=== PATIENT | male | born 1975 | race Caucasian/White ===

== ENCOUNTER 2020-10-21 21:06 | Inpatient (IN) | payer OTHER ==
[~2020-10-21] VITALS: Ht 177.8 cm; Wt 161.0 kg
--- NOTE | ~2020-10-21 | TEE ---
[facility] [address] [place] [address] TRANSESOPHAGEAL ECHOCARDIOGRAM Name: JULIENNE SUAREZ Room #: 249-P ADM IN M.R.#: [id number] Admission: 10/21/20 Attend Phys: Soy Alvarez Discharge: Date of : 77 Report #: [id number] THIS REPORT FOR: cc: Steve Harper,Alfonso Cardenas MD [facility] ~ APPROVED REPORT Study performed: 10/23/2020 08:54:15 EXAM: Comprehensive 2D, Doppler, and color-flow Echocardiogram Patient Location: ICU Room #: 237 BSA: 2.68 HR: 115 bpm BP: 98/65 mmHg Rhythm: Atrial Fibrillation Other Information Study Quality: Fair/not all measurements taken Technically limited study due to morbid obesity/flat on back/on BiPAP. Indications Afib. (Heart rate ranged from 110-135 bpm during exam) Echo Enhancing Agent Indication: Endocardial border delineation Agent(s) / Amount(s) Used: Optison 5 cc 2D Dimensions RVDd: 36.62 mm IVSd: 12.47 (7-11mm) LVOT Diam: 21.16 (18-24mm) LVDd: 50.45 mm PWd: 12.28 (7-11mm) Ascending Ao: 35.00 (22-36mm) LVDs: 44.07 (25-40mm) Aortic Root: 35.26 mm Volumes Left Atrial Volume (Systole) Single Plane 4CH: 30.47 mL [facility] [address] [place] [address] TRANSESOPHAGEAL ECHOCARDIOGRAM Name: JULIENNE SUAREZ Room #: 249-P ADM IN M.R.#: [id number] Admission: 10/21/20 Attend Phys: Soy Mckinley Discharge: Date of : 77 Report #: [id number] Aortic Valve AoV Peak Jae.: 1.80 m/s AO Peak Gr.: 13.08 mmHg LVOT Max P.84 mmHg AO Mean Gr.: 7.56 mmHg AO V2 Mean: 1.31 m/s LVOT Max V: 0.84 m/s AO V2 VTI: 28.38 cm ANIKET Vmax: 1.65 cm2 Mitral Valve MV Decel. Time: 87.21 ms MV E Max Jae.: 0.89 m/s Pulmonary Valve PV Peak Jae.: 1.06 m/s PV Peak Gr.: 4.47 mmHg Tricuspid Valve RAP Estimate: 10.00 mmHg Left Ventricle The left ventricle is normal size. Mild concentric left ventricular hypertrophy. 40% This study is not technically sufficient to allow evaluation of the LV diastolic function due to atrial fibrillation. Right Ventricle Right ventricle is poorly visualized. Atria The left atrium size is normal. The right atrium size is normal. Aortic Valve Aortic valve is grossly normal. Trace aortic regurgitation. Mitral Valve The mitral valve is normal in structure. Trace mitral regurgitation. Tricuspid Valve The tricuspid valve is normal in structure. Unable to assess PA pressure. There is no tricuspid valve regurgitation noted. Great Vessels The aortic root is normal in size. The ascending aorta is normal in size. IVC is dilated and collapses >50% with inspiration. [facility] [address] [place] [address] TRANSESOPHAGEAL ECHOCARDIOGRAM Name: JULIENNE SUAREZ Room #: 249-P [facility] IN .R.#: [id number] Admission: 10/21/20 Attend Phys: Soy Mckinley Discharge: Date of : 77 Report #: [id number] Pericardium There is no pericardial effusion. Right pleural effusion. <Conclusion> Normal left ventricle size with mild concentric hypertrophy Ejection fraction 40% with global hypokinesis Right ventricle not well seen Normal atrial size Color-flow Doppler study was performed of the aortic/mitral/tricuspid/pulmonary valve Normal aortic/mitral valve structure and function No tricuspid valve insufficiency detected No pericardial effusion By: 0951 Alfonso Boothe MD, FACC /INF
[2020-10-21 21:07] VITALS: BP 107/70
[2020-10-21 21:39] LABS: BASOPHILS 0.3 % (0.0-2.0); HEMOGLOBIN 6.8 gm/dL (14.0-18.0)
[2020-10-21 21:41] LABS: ABSOLUTE NEUTROPHILS 12.7 thou/uL (1.4-8.2); EOSINOPHILS 0.2 % (0.0-3.0); HEMATOCRIT 20.3 % (42.0-52.0); LYMPHOCYTES 7.2 % (24.0-44.0); MCH 29.8 pg (26.0-34.0); MCHC 33.5 g/dL (28.0-37.0); MCV 89.1 fL (80.0-100.0); MONOCYTES 7.3 % (1.0-8.0); PLATELET COUNT 193 thou/uL (150-400); RBC 2.28 mil/uL (4.50-6.00); RDW 18.1 % (10.5-14.5); WBC 14.9 thou/uL (4.0-11.0)
[2020-10-21 21:45] LABS: CREATININE 6.9 mg/dL (0.7-1.3); POTASSIUM 5.2 mmol/L (3.5-5.1)
[2020-10-21 21:51] LABS: ALBUMIN 1.6 g/dL (3.4-5.0); DIRECT BILIRUBIN 0.2 mg/dL (<0.1-0.2); TOTAL BILIRUBIN 0.6 mg/dL (0.2-1.0); TOTAL PROTEIN 7.1 g/dL (6.4-8.2)
[2020-10-21 21:53] LABS: BE(vivo) -0.5 mmol/L (-2 to +3); PCO2 38.8 mmHg (35.0-45.0); PO2 68.9 mmHg (80.0-100.0)
[2020-10-21 22:41] LABS: URINE BILIRUBIN NEGATIVE (Negative); URINE BLOOD 2+ (Negative); URINE CLARITY SL CLOUDY; URINE COLOR YELLOW; URINE GLUCOSE-RANDOM* NEGATIVE (Negative); URINE KETONES NEGATIVE (Negative); URINE LEUKOCYTES-REFLEX TRACE (Negative); URINE NITRITE-REFLEX NEGATIVE (Negative); URINE PROTEIN (DIPSTICK) NEGATIVE (Negative); URINE UROBILINOGEN 0.2 E.U./dl (0.2-1.0)
[2020-10-21] MEDS ORDERED: PROAIR HFA8.5 GM INH (22:49)
[2020-10-21] MEDS ORDERED: LIPITOR40 MG PO (22:49)
[2020-10-21] MEDS ORDERED: ASA81BEC PO (22:49)
[2020-10-21] MEDS ORDERED: CALCIUM500 MG PO (22:49)
[2020-10-21] MEDS ORDERED: FLEXERIL PO (22:50)
[2020-10-21] MEDS ORDERED: CARVEDILOL12.5 MG PO (22:50)
[2020-10-21] MEDS ORDERED: DEPAKOTE 250MG250 MG PO (22:51)
[2020-10-21] MEDS ORDERED: ESCITALOPRA5 MG/5 ML PO (22:51)
[2020-10-21] MEDS ORDERED: FENOFIBRATE160 MG PO (22:51)
[2020-10-21] MEDS ORDERED: UNICOMPLEX M TA1 TA1 PO (22:53)
[2020-10-21] MEDS ORDERED: MEDROL DOSPAK21 TA1 PO (22:53)
[2020-10-21] MEDS ORDERED: XARELTO20 MG PO (22:54)
[2020-10-21] MEDS ORDERED: PROTONIX40 M2 PO (22:54)
[2020-10-21] MEDS ORDERED: TORSEMIDE20 MG PO (22:55)
[2020-10-21] MEDS ORDERED: VITAMIN B-121000 MC2 PO (22:55)
[2020-10-21] MEDS ORDERED: VITAMIN D3125 MCG/1 PO (22:56)
[2020-10-21 22:57] VITALS: BP 98/54
[2020-10-21] MEDS ORDERED: AZITHROMYCIN500 MG PO (22:57)
[2020-10-21 23:00] LABS: SQUAMOUS 0-3 Few /LPF (0-3)
[2020-10-21 23:01] LABS: AMORPHOUS URATES Moderate /LPF (None Seen); BACTERIA-REFLEX 1-9 Few /HPF (None Seen); CASTS None Seen /LPF (None Seen); MUCUS 4-6 Moderate strn/LPF (None Seen); URINE WBC-REFLEX 0-5 Rare /HPF (0-5)
[2020-10-21 23:44] VITALS: BP 124/40
[2020-10-22] VITALS (61 sets, daily range): BP systolic 101–151; BP diastolic 31–74
[2020-10-22 00:38] LABS: CHOLESTEROL < 50 mg/dL (<200); HDL CHOLESTEROL 10 mg/dL (>40); LDL CHOLESTEROL 19.99999 mg/dL (<100); TRIGLYCERIDE 101 mg/dL (<150); VLDL 20 mg/dL (<40)
[2020-10-22 00:45] LABS: SERUM ASSESSMENT Clear
--- NOTE | 2020-10-22 04:00 | NUR ---
PT ARRIVED TO UNIT APPROX 2340, PLACED ON MONITOR, VS AND FSBG COMPLETED, AND ADMISSION DONE. PT LETHARGIC, ABLE TO WHISPER HIS NAME AND , SLUGGISH W/ANSWERING QUESTIONS IF ANSWERING AT ALL. STARTED ON IV ABX AND FLUIDS. 96% ON 4L O2. MRSA SWAB SENT. WOUND PHOTOS OF BILATERAL HEELS AND BUTTOCKS. 0030-ROUTINE CONSULT TO DR. MATAMOROS CALLED TO ANSWERING SERVICE. 0300-SPOKE W/DEVONTE IGNACIO ABOUT ORDERS TO TRANSFUSE, PT WAS STILL TOO ALTERED TO CONSENT FOR BLOOD TRANSFUSION HIMSELF AND ONLY A FRIEND LISTED A CONTACT; WILL WAIT FOR MORNING LABS TO SEE IF THERE IS A SIGNIFICANT DECREASE REQUIRING EMERGENT TRANSFUSION. ALSO DISCUSSED PT'S INCREASED O2 NEEDS, INCLUDING PLACING ON VENTI MASK AND WET LUNG SOUNDS. DECREASED FLUIDS FROM 125 TO 75 ML/HR. SATS CONTINUED TO DROP, DEVONTE IGNACIO ASSESSED PT AGAIN, DROPPED FLUIDS TO 50 ML/HR AND ORDERED x1 DOSE IVP LASIX. PT ALSO PLACED ON BIPAP AT 60% FIO2 AT 0350.
--- NOTE | 2020-10-22 07:15 | EKG ---
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1975 Requested By: Taisha Young Order Number: [id number] MD: Alfonso Boothe Measurements Intervals [place] Rate: 75 P: 42 MS: 145 QRS: -8 QRSD: 118 T: 144 QT: 399 QTc: 446 Interpretive Statements Sinus rhythm LVH with IVCD and secondary repol abnrm No previous ECG available for comparison Electronically Signed On 10-22-2020 7:14:53 BOBBIN DUMPER by Alfonso Boothe [email or web address] <ELECTRONICALLY SIGNED> By: Alfonso Boothe MD, [facility] 10/22/20 0714 2138 2138 Alfonso Boothe MD, FACC /EPI
[2020-10-22 07:27] LABS: ABSOLUTE RETIC COUNT 0.0309 10^6/uL; MCH 29.2 pg (26.0-34.0); MCHC 32.6 g/dL (28.0-37.0); MCV 89.7 fL (80.0-100.0); OBSERVED RETIC COUNT 1.47 % (0.6-2.6); RBC 2.1 mil/uL (4.50-6.00); WBC 13.3 thou/uL (4.0-11.0)
[2020-10-22 07:33] LABS: HEMATOCRIT 18.9 % (42.0-52.0); HEMOGLOBIN 6.1 gm/dL (14.0-18.0)
[2020-10-22 07:38] LABS: ALBUMIN 1.4 g/dL (3.4-5.0); CALCIUM 7.7 mg/dL (8.5-10.1); CREATININE 6.5 mg/dL (0.7-1.3); POTASSIUM 4.6 mmol/L (3.5-5.1); TOTAL BILIRUBIN 0.5 mg/dL (0.2-1.0); TOTAL PROTEIN 6.4 g/dL (6.4-8.2)
--- NOTE | 2020-10-22 07:40 | NUR ---
ASSUMMED CARE OF THIS PATIENT FROM THE NIGHT NURSE, KENNETH STEVENSON. ROMAN PORTILLO RN NOTIFIED OF NEG COVID TEST. REMOVAL FROM ISOLATION PENDING.
[2020-10-22 08:10] LABS: % SATURATION 20 % (20-39); IRON 23 ug/dL (65-175); TIBC 117 ug/dL (250-450)
--- NOTE | 2020-10-22 08:15 | NUR ---
chart review. unable to visit with pt rt on bipap. noted he from LTC at [facility] home. per caroline, he lived there since oct 05. " he was [facility] and still required assist with wound care, prior to he was trying to manage at home but was needing assistance and was to weak home alone"/[place] liaison. discussed during am rounds. will cont following as needed for dc needs.
[2020-10-22 08:44] LABS: FOLIC ACID 3.6 ng/mL (8.6-58.9)
--- NOTE | 2020-10-22 11:13 | NUR ---
WOUND CONSULT; THE PATIENT IS IN COVID RESTRICTIONS. I COMPLETED AN ASSESSMENT FINDINGS ARE BILATERAL HEEL PRESSURE INJURIES STAGE 2, SCANT DRAINAGE MOST OF THE WOUND HAS PARTIAL THICKNESS LOSS. THE DRAINAGE IS SEROSANGINOUS AND NON ODOROUS BILATERALLY. THE BUTTOCKS IS ESCORIATED WITH SOME PATIAL THICKNESS LOSS. SEROSANGINOUS NON ODOROUS WELL. THE PPATIENT IS ON BIPAP BUT CAN COMMUNICATE. RECOMMENDATIONS; 1-ZGUARD TO BUTTOCKS/SARUM BID/PRN. 2-AG FOAM TO HEELS BILATERALLY M/W/F PRN 3-TURN Q2H .
--- NOTE | 2020-10-22 11:25 | NUR ---
CALLED PATIENT'S SISTER, SNOW GALARZA, UPDATED HER ON THE PATIENT'S STATUS AND OBTAINED CONSENT FOR BLOOD TRANSFUSION. PATIENT ALSO MORE RESPONSIVE AND NODDED HIS HEAD IN APPROVAL FOR THE BLOOD TRANSFUSION. WILL CONTINUE TO MONITOR.
--- NOTE | 2020-10-22 11:31 | NUR ---
VAT CONSULTED FOR CVAD. PT'S LABS,MEDS,HX,ORDER AND CONSENT VERIFIED. LIJ WAS WIDELY PATENT WITH USG. 6FR TL POWER JACC 25CM INSERTED TO 3 EXTERNAL WITH BRISK BR. STAT CXR SHOWS LINE LOOPED ON ITSELF. REPOSITIONED AND POWER FLUSHED. 2ND CXR ORDERED
--- NOTE | 2020-10-22 12:14 | NUR ---
REPOITIONED CVAD BY POWER FLUSHING. CXR SHOWS POSSIBLE PERSISTENT LEFT SVC READ BY DR DOS SANTOS, SPOKE TO DR SOUZA IN RADIOLOGY WHO ALSO VEIWED FILM AND STATED IT IS GOOD TO USE. CVAD RELEASED FOR IMMEDIATE USE PER PROTOCOL TO REBECA STEVENSON
--- NOTE | 2020-10-22 14:00 | NUR ---
DR TODD ROUNDED ON PATIENT AND UPDATED THE SISTER. ORDERS NOTED.
--- NOTE | 2020-10-22 15:00 | NUR ---
DR DOUGLAS ROUNDED ON PATIENT. MICRO CALLED ABOUT POSITIVE BLOOD CULTURE AND DR DOUGLAS UPDATED.
--- NOTE | 2020-10-22 15:35 | NUR ---
FAXED CLINICAL UPDATE TO [facility] SPOKE WITH GLENN IN ADM SHE RECEIVED UPDATE. DP TO FOLLOW.
[2020-10-22 17:14] LABS: HEMATOCRIT 22.5 % (42.0-52.0); HEMOGLOBIN 7.4 gm/dL (14.0-18.0)
[2020-10-22 17:22] LABS: APTT 36.3 Seconds (24.5-32.8); INR 1.6; PROTIME 16.9 Seconds (9.3-11.4)
--- NOTE | 2020-10-22 19:00 | NUR ---
PATIENT PROGRESSING TOWARDS OUTCOME GOALS URINE OUTPUT HAS BEEN GREATER THAN 75ML/HR VIA CHAWLA. MORE RESPONSIVE AND BREATHE SOUNDS HAVE IMPROVED. WILL CONTINUE TO MONITOR.
[2020-10-23] VITALS (77 sets, daily range): BP systolic 85–148; BP diastolic 39–93
[2020-10-23 04:06] LABS: GLYCOHEMOGLOBIN (HGB A1C) 5.8 % (4.8-5.6)
--- NOTE | 2020-10-23 04:41 | NUR ---
0338 - PT CONVERTED TO AFIB WITH A RATE BETWEEN 100-130, PT ASYMPTOMATIC OTHERWISE. DEVONTE IGNACIO NOTIFIED. EKG OBTAINED CONFIRMING AFIB. NO ORDERS GIVEN AT THIS TIME BUT WILL FOLLOW BACK UP WITH DEVONTE IGNACIO IN AN HOUR.
[2020-10-23 05:35] LABS: HEMATOCRIT 23.2 % (42.0-52.0); HEMOGLOBIN 7.6 gm/dL (14.0-18.0); MCH 29.6 pg (26.0-34.0); MCHC 32.8 g/dL (28.0-37.0); MCV 90.4 fL (80.0-100.0); PLATELET COUNT 154 thou/uL (150-400); RBC 2.56 mil/uL (4.50-6.00); RDW 17.9 % (10.5-14.5); WBC 12.1 thou/uL (4.0-11.0)
[2020-10-23 05:39] LABS: ALBUMIN 1.2 g/dL (3.4-5.0); CREATININE 5.9 mg/dL (0.7-1.3); POTASSIUM 4.4 mmol/L (3.5-5.1)
[2020-10-23 06:55] LABS: ABSOLUTE NEUTROPHILS 10.9 thou/uL (1.4-8.2); ANISOCYTOSIS 1+; PLATELET ESTIMATE NORMAL; POIKILOCYTOSIS 1+
[2020-10-23 08:06] LABS: BE(vivo) -0.4 mmol/L (-2 to +3); HCO3 25.6 mmol/L (22.0-26.0); PCO2 48.8 mmHg (35.0-45.0); PO2 66.4 mmHg (80.0-100.0); pH 7.337 (7.360-7.450); sO2 91.8 % (92.0-98.0)
--- NOTE | 2020-10-23 09:13 | NUR ---
ASSUMED CARE OF PT AT 0700 PT ANSWERED BASIC QUESTIONS AND FOLLOWED COMMANDS.
--- NOTE | 2020-10-23 11:00 | HC ---
[facility] [place] [address] CONSULTATION Name: JULIENNE SUAREZ Room #: 237-P ADM IN M.R.#: [id number] Admission: 10/21/20 Attend Phys: Soy Alvarez Discharge: Date of : 77 Report #: [id number] THIS REPORT FOR: cc: Steve Harper,Contreras Bueno MD ~ DATE OF SERVICE: 10/22/2020 INFECTIOUS DISEASE CONSULTATION ATTENDING PHYSICIAN: Soy Alvarez MD REASON FOR EVALUATION: Sepsis/pneumonitis. HISTORY OF PRESENT ILLNESS: Chart reviewed, patient examined. This is a 45-year-old extensive medical history given his age, most of it arises from morbid obesity. He additionally has seizure disorder, who lives in a facility, who was noted to be acting different than his usual, only had not been there long. Lab was performed, which showed renal failure with a creatinine of 6.2 and profound anemia, hemoglobin 7.2. Due to concern about possible complications including infection, he was transferred. He notably had a negative COVID test earlier in the week as well. On arrival, he is clearly encephalopathic. At this point, he is minimally responsive. He is maintained on BiPAP for ventilatory support. Repeat labs confirmed critical nature of his situation he was transfused packed red cells. Initial ABG: pO2 of 68.9 on 3 liters. Chest x-ray, question of right basilar pneumonitis. Lactic acid was normal at 0.6, although procalcitonin elevated at 12.37. Blood cultures have been collected and are sterile thus far. Repeat coronavirus PCR was negative as well. Urinalysis is unremarkable. He is empirically started on antimicrobial therapy with levofloxacin, Zosyn and vancomycin. The former 2 have been continued, additionally, has been on corticosteroids. ALLERGIES: None known. MEDICATIONS: In addition to the antibiotics include sliding scale insulin, subcutaneous heparin, ipratropium and albuterol inhaler, pantoprazole, p.r.n. analgesics and antiemetics. PAST MEDICAL HISTORY: As described above, morbid obesity complications. He has previous gastric bypass surgery in 07/2020, obstructive sleep apnea requiring CPAP, seizure disorder, hyperlipidemia, hypertension, major depression, history of DVTs, bilateral heel decubitus ulcers. SOCIAL HISTORY: Disabled, otherwise unknown. [address] [address] CONSULTATION Name: JULIENNE SUAREZ Room #: 237-P [facility] IN M.R.#: [id number] Admission: 10/21/20 Attend Phys: Soy Alvarez Discharge: Date of : 77 Report #: [id number] FAMILY HISTORY: Noncontributory. REVIEW OF SYSTEMS: Unobtainable. PHYSICAL EXAMINATION: GENERAL: In uehc-vk-wxrbxrlt distress. He is unable to arouse more than just a brief movement of his head. He does not open his eyes. He is morbidly obese. VITAL SIGNS: Temperature 98.4, pulse 71, respirations 16, and blood pressure 110/45. SKIN: Warm, dry, no rashes. HEENT: BiPAP in place. NECK: Appears to be supple. LUNGS: Diminished due to a size, few scattered coarse breath sounds. HEART: Distant, appears to be regular. I do not appreciate a murmur. ABDOMEN: Obese. Pannus is really soft. There are no apparent peritoneal signs. GENITOURINARY AND RECTAL: Deferred. EXTREMITIES: He has been offloading __ distal lower extremities. LABORATORY AND X-RAY DATA: Most recent chest x-ray again shows right pleural effusion with right lower lung infiltrate. MRSA PCR was positive. Renal ultrasound showed no evidence of obstructive uropathy, left renal cyst. LDH is 247. CPK is 1055. Ferritin elevated at 1414. Procalcitonin 12.37, free T3 was 1.00, free T4 1.2. Iron level was low at 23. Electrolytes: Sodium is 134, potassium 4.6, chloride 97, bicarbonate 26, anion gap of 11, BUN and creatinine is 137 and 6.5, and glucose of 147. AST is 73 and ALT of 12. Albumin is 1.4 and total protein 6.4. CBC: White count 13.3, H and H 6.1 and 18.9 at pre-transfusion and platelet count of 161. Blood cultures are sterile thus far. Urinalysis: 2+ blood, 0-5 white cells. ASSESSMENT AND PLAN: 1. Possible pneumonitis, complicated by sepsis. 2. Morbid obesity. 3. Respiratory failure. 4. Severe anemia. 5. Encephalopathy. We will continue empiric therapy. At this point, it is not entirely clear as to the extent of all the various factors. Now, it is difficult to ascertain from physical examination the patient's size. He remains critically ill. Continue ICU level support, would not be surprising to me if he deteriorates prior to improving, certainly pursue further diagnostic leads and adjust therapy as dictated. <ELECTRONICALLY SIGNED> By: Contreras Lincoln MD 10/23/20 1100 1457 1751 Contreras Lincoln MD /nt
--- NOTE | 2020-10-23 15:43 | NUR ---
cm asked to locate place or hospital were he had gi sleeve. jazz spoke with liaison with [facility] to check if they have any records, and they don't. paradise reno from [facility] and in doc report that [facility] is his main hospital. say had GI sleeve in 2019 but doesnt say where the procedure was done at. cm passed on information to icu charge nurse. will cont following as needed.
--- NOTE | 2020-10-23 18:09 | NUR ---
CENTRAL LINE AGAIN KINKED AND NON FUCTIONING, UNABLE TO OVER THE WIRE. 2 PERIPHERAL IV LINES PLACED. IT TOOK THE VASCULAR ACCESS NURSE [address] LINE, VERY DIFFICULT PLACEMENT- UNABLE TO ROTATE THE PATIENTS HEAD TO ATTEMPT RIGHT IJ, ORDER PLACED FOR IR TO ATTEMPT
[2020-10-24] VITALS (27 sets, daily range): BP systolic 87–162; BP diastolic 17–102
--- NOTE | 2020-10-24 00:11 | NUR ---
ASSUMED PT CARE AT 1900. VSS. PT A&0 TO SELF AND SITUATION, resting well, no complaints. report given to Lindsey STEVENSON
[2020-10-24 04:56] LABS: ALBUMIN 2.1 g/dL (3.4-5.0); CALCIUM 8.2 mg/dL (8.5-10.1); CREATININE 5.2 mg/dL (0.7-1.3); PHOSPHORUS 5.6 mg/dL (2.5-4.9); POTASSIUM 4.1 mmol/L (3.5-5.1)
--- NOTE | 2020-10-24 06:13 | NUR ---
Assumed care of patient at midnight. Patient sleeping but wakes easily and appears to be more alert than perviously. Able to answer yes/no questions. Heart rate now in the 50's. Sinus carl. Amiodarone off at 0500. Blood pressures stable in the 120's. Afebrile. Adequate oxygenation on 40% bipap. Pt has been NPO. Accuchecks covered with insulin. No BM. U/o 700 from adams cath. Am labs drawn via PIV. Values noted. Did not speak to any family this shift. See documentation on interventions for assessment details. Pt is progressing towards goals.
--- NOTE | 2020-10-24 06:58 | EKG ---
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1975 Requested By: Soy Alvarez Order Number: [id number] MD: Alfonso Boothe Measurements Intervals [place] Rate: 108 P: NE: QRS: -13 QRSD: 117 T: 138 QT: 343 QTc: 460 Interpretive Statements Atrial fibrillation LVH with IVCD and secondary repol abnrm Baseline wander in lead(s) V1 Compared to ECG 10/21/2020 21:38:05 Sinus rhythm no longer present Electronically Signed On 10-24-2020 6:58:03 LIEUTENANT COLONEL by Alfonso Boothe [email or web address] <ELECTRONICALLY SIGNED> By: Alfonso Boothe MD, [facility] 10/24/20 0658 0405 Alfonso Boothe MD, FAC /EPI
--- NOTE | 2020-10-24 08:10 | NUR ---
bedside nurse called cm rt needing records about gi sleeve pt had in 2019, request records from [facility]. cm education on how to request records. possible going to have vats procedure today.
--- NOTE | 2020-10-24 09:00 | NUR ---
If pt remains intubated following VATS, consider dobhoff for feeding as pt has hx gastric sleeve. Renal does not want TPN. Would need vital HP to start at 25-30ml/hr
--- NOTE | 2020-10-24 09:37 | NUR ---
DPOA CONSULT- ICU MANAGER FIXED INCOME SAID SHE HAS COMMUNICATED WITH THE PATIENT'S . CM SAID THE PT. HAS A DPOA. SHE IS GOING TO COMMUNICATE WITH THE TO GET A COPY BEFORE THE PROCEDURE TODAY. I SUGGESTED THAT IF SHE CAN NOT GET A COPY OF THE DPOA PAPERWORK, TO PAGE THIS CHALAIN. I WILL BE GLAD TO COME SEE THE PATIENT BEFORE HIS PROJECTED PROCEDURE, HE IS CURRENTLY ON ROOM AIR.
[2020-10-24 10:56] LABS: HEMOGLOBIN 7.2 gm/dL (14.0-18.0); MCH 29.5 pg (26.0-34.0); MCHC 32.6 g/dL (28.0-37.0); MCV 90.6 fL (80.0-100.0); RBC 2.43 mil/uL (4.50-6.00); RDW 17.8 % (10.5-14.5); WBC 14.8 thou/uL (4.0-11.0)
--- NOTE | 2020-10-24 11:08 | NUR ---
OA PAPERWORK IS COMPLETED AND IN CHART NOTIFIED THAT NO CURRENT PAPERWORK IS AVAILABLE. TELEPHONE CALL TO HIS SISTER, SNOW. UPDATED HER ON [facility] PAPERWORK. SHE IS LISTED [facility] FOR HEALTHCARE. WE HAD A TIME OF PRAYER FOR HER BROTHER'S SURGERY.
[2020-10-24 15:39] LABS: BE(vivo) -6.5 mmol/L (-2 to +3); PCO2 52.8 mmHg (35.0-45.0); PO2 88.9 mmHg (80.0-100.0); sO2 94.9 % (92.0-98.0)
[2020-10-24 15:40] LABS: pH 7.217 (7.360-7.450)
[2020-10-24 16:26] LABS: BE(vivo) -5.3 mmol/L (-2 to +3); HCO3 20.2 mmol/L (22.0-26.0); PCO2 39.3 mmHg (35.0-45.0); PO2 245.2 mmHg (80.0-100.0); sO2 99.5 % (92.0-98.0)
[2020-10-24 16:27] LABS: pH 7.328 (7.360-7.450)
--- NOTE | 2020-10-24 16:50 | NUR ---
PAN BOWEN CALLED, GENERAL UPDATE, ? FLUID ORDERS. CHEST TUBE OUTPUT REPORTED. STATES TO UPDATE DR. GIRALDO
--- NOTE | 2020-10-24 17:00 | NUR ---
DR. GIRALDO CALLED ABG RESULTS, GENERAL UPDATE GIVEN. REPORT ONLY 15CC URINE OUT LAST HOUR. ORDERS GIVEN. LAB DRAWN. CVP SET UP.
[2020-10-24 17:20] LABS: HEMATOCRIT 22.3 % (42.0-52.0); HEMOGLOBIN 7.3 gm/dL (14.0-18.0); MCHC 32.6 g/dL (28.0-37.0); PLATELET COUNT 140 thou/uL (150-400); RDW 17.7 % (10.5-14.5); WBC 16.1 thou/uL (4.0-11.0)
[2020-10-24 17:24] LABS: CREATININE 4.7 mg/dL (0.7-1.3); POTASSIUM 4.7 mmol/L (3.5-5.1)
[2020-10-24 17:42] LABS: APTT 33.4 Seconds (24.5-32.8); D-DIMER 6.68 ug/mLFEU (0.19-0.50); INR 1.5; PROTIME 15.6 Seconds (9.3-11.4)
[2020-10-24 17:45] LABS: ABSOLUTE NEUTROPHILS 14.3 thou/uL (1.4-8.2); ANISOCYTOSIS 2+; MYELOCYTES 3 %; NUCLEATED RBCS 1 /100WBC
[2020-10-24 17:47] LABS: OVALOCYTES 1+
[2020-10-24 17:48] LABS: SCHISTOCYTES OCCASIONAL; TARGET CELLS OCCASIONAL
[2020-10-24 17:49] LABS: TOXIC GRANULATION SLIGHT
--- NOTE | 2020-10-24 18:00 | NUR ---
DR. GIRALDO CALLED RESULTS OF LAB AND GENERAL UPDATE/ NEOSYNEPRINE MAXED OUT AT 200MCG. REPORTED 15CC URINE OUTPUT THIS LAST HOUR AND CHEST TUBE OUTPUT. ORDERS PER MD TO PLACE IN CHART. MD STATES NOT TO LIGHTEN PT UP THIS EVENING.
--- NOTE | 2020-10-24 19:10 | NUR ---
BRITTANIE FALK (RENAL MD) CALLED WITH URINE OUTPUT, LAB CVP AND GENERAL UPDATE. NO NEW ORDERS.
[2020-10-24 22:43] LABS: HEMATOCRIT 17.4 % (42.0-52.0); HEMOGLOBIN 5.8 gm/dL (14.0-18.0)
[2020-10-25] VITALS (25 sets, daily range): BP systolic 90–138; BP diastolic 29–69
[2020-10-25 05:13] LABS: HEMATOCRIT 22.6 % (42.0-52.0); HEMOGLOBIN 7.4 gm/dL (14.0-18.0); MCH 28.9 pg (26.0-34.0); MCHC 32.9 g/dL (28.0-37.0); MCV 87.9 fL (80.0-100.0); PLATELET COUNT 91 thou/uL (150-400); RBC 2.57 mil/uL (4.50-6.00); RDW 17.1 % (10.5-14.5); WBC 13.4 thou/uL (4.0-11.0)
[2020-10-25 05:21] LABS: BE(vivo) -4.9 mmol/L (-2 to +3); HCO3 20.6 mmol/L (22.0-26.0); PCO2 39.6 mmHg (35.0-45.0); PO2 85.1 mmHg (80.0-100.0); pH 7.334 (7.360-7.450); sO2 95.9 % (92.0-98.0)
[2020-10-25 05:31] LABS: ALBUMIN 2.3 g/dL (3.4-5.0); CALCIUM 7.6 mg/dL (8.5-10.1); CREATININE 4.6 mg/dL (0.7-1.3); PHOSPHORUS 5.3 mg/dL (2.6-4.7); POTASSIUM 4.3 mmol/L (3.5-5.1); TOTAL BILIRUBIN 0.8 mg/dL (0.2-1.0); TOTAL PROTEIN 5.5 g/dL (6.4-8.2)
[2020-10-25 06:09] LABS: ABSOLUTE NEUTROPHILS 11.7 thou/uL (1.4-8.2); ANISOCYTOSIS 1+; PLATELET ESTIMATE DECREASED
--- NOTE | 2020-10-25 06:22 | NUR ---
Patient fairly stable overnight. Heart rate and rhythm stable in the 60's. Blood pressures stable with Levophed and Vasopressin. No fevers. Adequate oxygenation on current vent settings. Tolerating vent with Propofol. Chest tube drainage slowed overnight. Hgb dropped, Gael called. Infused 2 units packed cells. Am labs noted. OGT placed and Nepro started at 20 mls/hr. No residual at this point. No family called this shift. See documentation on interventions for assessment details. Patient is progressing towards goals.
--- NOTE | 2020-10-25 11:09 | HC ---
[facility] [place] [address] CONSULTATION Name: JULIENNE SUAREZ Room #: 249-P ADM IN M.R.#: [id number] Admission: 10/21/20 Attend Phys: Soy Alvarez Discharge: Date of : 77 Report #: [id number] THIS REPORT FOR: cc: Steve Harper,Elliot Munroe MD ~ DATE OF SERVICE: 10/23/2020 We were asked to see the patient by Dr. Mayo. HISTORY: The patient is a 45-year-old [facility]. The patient presented to the ER via Emergency medical services with abnormal labs. The patient was found to have elevated BUN and creatinine and low hematocrit. The patient was said to have a reduced level of alertness than is typical. The patient was tested for COVID and this was negative on Tuesday. Since admission, the patient was seen by Infectious Disease for evaluation of sepsis and pneumonitis. Chest x-ray done on admission shows small right pleural effusion that layers along the right lateral chest. Right lower lung opacity is noted as well. Chest CT scan done today shows echogenic debris in the right pleural space with no free pleural fluid suggestive of intrathoracic hematoma. PAST HISTORY: Significant for gastric bypass surgery done in July at [facility]. It appears that the patient has been hospitalized intermittently since that time. The patient also has a history of seizure disorder, hypertension, hyperlipidemia, myopathy, morbid obesity, and major depressive disorder. The patient has been resident of [facility]. ALLERGIES: None known. I do not have a list of the medication previous to admission. MEDICATION: Currently includes sliding scale insulin, subcutaneous heparin, ipratropium and albuterol inhalers, pantoprazole, analgesics, antiemetics and antibiotics. FAMILY HISTORY, REVIEW OF SYSTEMS, AND SOCIAL HISTORY: Not obtainable, as the patient has BiPAP mask on and does not communicate with us currently. PHYSICAL EXAMINATION: GENERAL: The patient is lying in bed with BiPAP mask on. He will open his eyes and does look awake when his name is shouted, but he does not provide any answers to questions to me at this point. [facility] [address] [place] [address] CONSULTATION Name: JULIENNE SUAREZ Room #: 249-P ADM IN M.R.#: [id number] Admission: 10/21/20 Attend Phys: Soy Alvarez Discharge: Date of : 77 Report #: [id number] VITAL SIGNS: Temperature 36.1, heart rate 105, blood pressure 96/67, O2 sat 95% with 10-liter flow rate. HEENT: No scleral icterus. I see no arcus. NECK: No mass. No bruit. CHEST: Decreased breath sounds, right chest. HEART: Rhythm regular. ABDOMEN: Protuberant. SKIN: No specific rashes or infections noted. Edema in the lower extremities. NEUROLOGIC: The patient does not appear to have neurologic dysfunction, but does not respond enough to complete a full physical exam. ASSESSMENT AND PLAN: The patient appears to have a loculated pleural effusion. We will do more investigation to determine the underlying cause of this. However, Radiology has suggested that the debris is too thick for any sort of tube drainage. Intraoperative drainage with video-assisted thoracoscopy plus or minus thoracotomy with decortication may be appropriate. I will try to discuss risks in details with the family and obtain more information from the assisted about previous condition before going ahead with surgery; however, we may be able to proceed tomorrow afternoon. Thank you for the consult. <ELECTRONICALLY SIGNED> By: Elliot Oconnor MD 10/25/20 1109 1542 1627 Elliot Oconnor MD /nt
--- NOTE | 2020-10-25 11:09 | O ---
[facility] [place] [address] OPERATIVE REPORT Name: JULIENNE SUAREZ Room #: 249-P ADM IN M.R.#: [id number] Admission: 10/21/20 Attend Phys: Soy Turner Kim Discharge: Date of : 77 Report #: [id number] THIS REPORT FOR: cc: Steve Harper,Steve Candelaria,Elliot Coyle MD ~ DATE OF SERVICE: 10/24/2020 PREOPERATIVE DIAGNOSIS: Empyema, right chest. POSTOPERATIVE DIAGNOSIS: Empyema, right chest. OPERATION: Bronchoscopy, right video-assisted thoracoscopy, right thoracotomy with decortication. SURGEON: Elliot Oconnor MD ELECTRICAL TECHNICIAN INSTRUCTOR: BRUCE Mccartney. ANESTHESIA: General. INDICATIONS: The patient is a 45-year-old seen in consult for Dr. Mayo. The patient was transferred here from [facility]. The patient seems to have a long and unfortunate history that begins with a gastric bypass surgery in July. My understanding is that the patient has been institutionalized in one form or another since that time. The patient was transferred to this facility with clinical evidence of sepsis and a chest x-ray and CT scan showed a loculated right pleural effusion concerning for empyema. FINDINGS AND TECHNIQUE: After general anesthesia was established, flexible diagnostic bronchoscopy was performed. It was apparent at intubation that the pharynx was full of thick tenacious purulent sputum. A bronchial marcelo was placed. Bronchoscopy was performed, but no specific endobronchial lesions were noted. There were scattered thick secretions in the trachea and bronchi. After the bronchial marcelo was positioned in the right mainstem, the patient was placed with right side up. Exposure was obtained through typical video-assisted thoracoscopy ports. There was a mix of fluid and fibrin surrounding the right lung. I thought that in order to satisfactorily remove this pleural peel that we needed to expand our exposure to perform a thoracotomy. A posterolateral thoracotomy was made, chest was entered through the available interspace and the lung was decorticated. The area of involvement was principally lateral and inferior, but all 3 lobes were decorticated down to [facility] [address] [place] [address] OPERATIVE REPORT Name: JULIENNE SUAREZ Room #: 249-P ADM IN M.R.#: [id number] Admission: 10/21/20 Attend Phys: Soy Alvarez Discharge: Date of : 77 Report #: [id number] normal tissue. The lung itself was hemorrhagic and even after removing the thick fibrinous peel, the lung was bit hemorrhagic. We did encounter an area of perforating pustule in the lower lobe and cultures were taken. When all 3 lobes were decorticated, the chest was irrigated with copious amounts of warm saline, 4 chest tubes were placed to drain the anterior, lateral, posterior, and inferior pleural surfaces. Chest was then closed in layers in the usual fashion and the patient was taken to the recovery area in satisfactory condition. All counts reported as correct. <ELECTRONICALLY SIGNED> By: Elliot Oconnor MD 10/25/20 1109 [id number] Elliot Oconnor MD /nt
--- NOTE | 2020-10-25 18:24 | NUR ---
FIO2 DOWN TO 30%. LEVOPHED AT 1 MCG AND VASOPRESSIN AT O.O4 U/HR. INSULIN DRIP AT 6 UNITS/HR.. LIQUID BROWN STOOL TODAY X 1. THIS NURSE SPOKE WITH SISTER TODAY AND UPDATED HER ON PATIENT CONDITTION AND PLAN OF CARE.
[2020-10-26] VITALS (26 sets, daily range): BP systolic 109–166; BP diastolic 34–92
[2020-10-26 05:08] LABS: BE(vivo) -5.6 mmol/L (-2 to +3); HCO3 19.9 mmol/L (22.0-26.0); PCO2 39.5 mmHg (35.0-45.0); PO2 70.7 mmHg (80.0-100.0); pH 7.321 (7.360-7.450); sO2 93.1 % (92.0-98.0)
[2020-10-26 05:28] LABS: MCH 29.5 pg (26.0-34.0); RDW 17.1 % (10.5-14.5)
[2020-10-26 05:30] LABS: MCHC 33.6 g/dL (28.0-37.0); MCV 87.8 fL (80.0-100.0); PLATELET COUNT 88 thou/uL (150-400); RBC 2.13 mil/uL (4.50-6.00)
[2020-10-26 05:35] LABS: HEMATOCRIT 18.7 % (42.0-52.0); HEMOGLOBIN 6.3 gm/dL (14.0-18.0)
--- NOTE | 2020-10-26 06:00 | NUR ---
AM HGB 6.3 VANESSA PROCESS HELPER CALLED . LEFT ORDERS TO TX 1 UNIT PACKED CELLS.
--- NOTE | 2020-10-26 06:00 | NUR ---
REMAINS INTUBATED AND SEDATED WITH PROPOFOL AT 30 MCG. LEVOPHED and vaso gtts titrated off earlier.VSS SBP 118/70 TOTAL OF 100 CC CHEST TUBE DRAINAGE AND 1900 CC UO THIS SHIFT. PT BATHED. HAD A LARGE BROWN LIQUID STOOL PROGRESSING TOWARD GOALS. WILL CONT TO MONITOR.
[2020-10-26 06:07] LABS: ALBUMIN 2.4 g/dL (3.4-5.0); CALCIUM 7.8 mg/dL (8.5-10.1); CREATININE 3.8 mg/dL (0.7-1.3); PHOSPHORUS 5.3 mg/dL (2.5-4.9); TOTAL BILIRUBIN 0.4 mg/dL (0.2-1.0); TOTAL PROTEIN 5.7 g/dL (6.4-8.2)
[2020-10-26 06:22] LABS: ABSOLUTE NEUTROPHILS 11.8 thou/uL (1.4-8.2); ANISOCYTOSIS 1+; METAMYELOCYTES 1 %; MYELOCYTES 2 %; PLATELET ESTIMATE DECREASED
[2020-10-26 11:15] LABS: HEMOGLOBIN 6.4 gm/dL (14.0-18.0)
[2020-10-26 11:16] LABS: HEMATOCRIT 19.1 % (42.0-52.0)
[2020-10-26 16:11] LABS: HEMOGLOBIN 6.3 gm/dL (14.0-18.0)
--- NOTE | 2020-10-26 18:18 | NUR ---
PT PROGRESSING TOWARDS GOALS. FOLLOW ALL COMMANDS THIS AM. FECAL TUBE PLACED. INSULIN GTT.
[2020-10-26 22:27] LABS: HEMOGLOBIN 7.6 gm/dL (14.0-18.0)
[2020-10-27] VITALS (20 sets, daily range): BP systolic 112–168; BP diastolic 41–81
[2020-10-27 05:13] LABS: HCO3 20.4 mmol/L (22.0-26.0); PCO2 39.2 mmHg (35.0-45.0); PO2 86.5 mmHg (80.0-100.0); pH 7.335 (7.360-7.450)
[2020-10-27 05:17] LABS: HEMATOCRIT 23.4 % (42.0-52.0); HEMOGLOBIN 7.7 gm/dL (14.0-18.0); MCH 29.1 pg (26.0-34.0); MCHC 32.9 g/dL (28.0-37.0); MCV 88.5 fL (80.0-100.0); PLATELET COUNT 131 thou/uL (150-400); RBC 2.65 mil/uL (4.50-6.00); RDW 16.4 % (10.5-14.5); WBC 14.8 thou/uL (4.0-11.0)
[2020-10-27 05:45] LABS: ALBUMIN 2.2 g/dL (3.4-5.0); CALCIUM 7.7 mg/dL (8.5-10.1); CREATININE 3.2 mg/dL (0.7-1.3); POTASSIUM 3.7 mmol/L (3.5-5.1); TOTAL BILIRUBIN 0.5 mg/dL (0.2-1.0); TOTAL PROTEIN 5.6 g/dL (6.4-8.2)
--- NOTE | 2020-10-27 06:00 | NUR ---
REMAIN INTUBATED AND LIGHTLY SEDATED WITH PROPOFOL. ABLE TO DIE OUT WORKER WEAKLY TO COMMAND And nod approp, 1000 CC UO THIS SHIFT. АНДРЕЙ TUBE FEEDING AT 20 CC/HR PROGRESSING TOWARD GOALS.
[2020-10-27 08:30] LABS: ABSOLUTE NEUTROPHILS 11.8 thou/uL (1.4-8.2); ANISOCYTOSIS 1+; HYPOCHROMASIA 1+; PLATELET ESTIMATE NORMAL
--- NOTE | 2020-10-27 10:27 | NUR ---
ASSUMED CARE OF PT AT 0700 PT WILL WAKE UP AND FOLLOW COMMANDS AND WILL INDICATE THAT HE IS IN PAIN THROUGH SHAKING HIS HEAD, YES OR NO.
--- NOTE | 2020-10-27 12:29 | NUR ---
chart review. discussed during rounds. he remains on vent since had vats on tuesday10/24/20. possible start wean trial. cm provided verbal update for [facility]. will cont following as needed for dc needs.
--- NOTE | 2020-10-27 13:50 | NUR ---
WOUND CARE F/U; THE HEELS HAVE IMPROVED WITH LESS DRAINAGE TO THE RIGHT. THE LEFT HEEL IS VIRTUALLY HEALED. THE BITTOCKS AND KAM-AREAS HAVE IMPROVED GREATLY. A SMALL AREA TO THE COCCYX WAS VISUALIZED. THE PATIENT IS ON HEPARIN THERE IS CAPPILARY BLEEDING. THE PUNGAL AREAS TO ALL SKIN TEARS REMAIN A PROBLEM. RECOMMENDATIONS; -RN TO VISUALIZE THE COCCYX AND OTHER AREAS FOR BLEEDING. NO CHANGES AT THIS TIME.
--- NOTE | 2020-10-27 15:36 | NUR ---
FAXED CLINICAL UPDATE TO [facility] SPOKE WITH GLENN IN ADM SHE RECEIVED UPDATE AND WILL FOLLOW.
[2020-10-28] VITALS (24 sets, daily range): BP systolic 128–163; BP diastolic 39–111
[2020-10-28 05:05] LABS: HEMATOCRIT 24.1 % (42.0-52.0); HEMOGLOBIN 7.9 gm/dL (14.0-18.0); MCH 29.3 pg (26.0-34.0); MCHC 32.8 g/dL (28.0-37.0); MCV 89.3 fL (80.0-100.0); RBC 2.7 mil/uL (4.50-6.00); RDW 16.1 % (10.5-14.5); WBC 17.2 thou/uL (4.0-11.0)
[2020-10-28 05:24] LABS: CREATININE 2.8 mg/dL (0.7-1.3); POTASSIUM 3.4 mmol/L (3.5-5.1)
--- NOTE | 2020-10-28 06:38 | NUR ---
Pt remains on insulin gtt at a low dose. Propofol for vent management. CVP and art line in place. VSS. Patient follows commands on sedation vacation and nods head appropriately. Progressing towards goals.
--- NOTE | 2020-10-28 12:07 | PATH ---
[facility] [address] [place] [address] PATHOLOGY RPT PROCEDURE Name: JULIENNE SUAREZ Room #: 249-P ADM IN M.R.#: [id number] Admission: 10/21/20 Date of : 77 Discharge: Report #: [id number] Path Case #: [id number] [facility] Accession Number: [id number] . 01 Material submitted: . pleura - RIGHT PLEURAL TISSUE. Modifiers: right . 01 Clinical history: . REASON FOR VISIT - AMS, ACUTE RENAL FAILURE, ANEMIA THORACOSCOPY POSS THORACOTOMY BRONCHOSCOPY THORACOTOMY DECORTICATION OF LUNG PRE-OP DX - RESPIRATORY FAILURE . 02 Diagnosis: Pleura, tissue, decortication: - Marked acute inflammation, fibrinoid degeneration along with reactive changes. - Negative for malignancy. (IUV:pit 10/27/2020) QTP 10/27/2020 1647 Local . 02 Electronically signed: . Janie Dumont MD, Pathologist NPI- [id number] . 01 Gross description: . Received in formalin labeled "Julienne Suarez, right pleural tissue" is a 12.0 x 9.7 x 2.5 cm aggregate of hernandez-brown friable soft tissue fragments and red-brown clotted blood material. Oracle Database Architect tissue is submitted in cassette A1. ([facility]; 10/26/2020) [facility] 10/26/2020 0945 Local . 02 Pathologist provided ICD-10: R09.1 . 02 CPT . 287542 Specimen Comment: A courtesy copy of this report has been sent to [phone] Specimen Comment: Report sent to Performed at: [address] [id number] MD Juan J Avelar MD Phone: [phone] Performed at: 02 [facility] [address] [place] [address] PATHOLOGY RPT PROCEDURE Name: JULIENNE SUAREZ Room #: 249-P ADM IN .R.#: [id number] Admission: 10/21/20 Date of : 77 Discharge: Report #: [id number] Path Case #: [id number] [address] [place] [id number] MD Janie Dumont MD Phone: [phone]
--- NOTE | 2020-10-28 14:25 | 2DMMODE ---
[address] [address] [place] [address] 2 D/M-MODE ECHOCARDIOGRAM Name: JULIENNE SUAREZ Room #: 249-P ADM IN M.R.#: [id number] Admission: 10/21/20 Attend Phys: Soy Alvarez Discharge: Date of : 77 Report #: [id number] THIS REPORT FOR: cc: Steve Harper,Alfonso Cardenas MD [facility] Soy Alvarez MD ~ Sex/Age : M/45Y Height/Weight : 177.8cm/163.3kg Patient Name : JULIENNE SUAREZ Study Date : 2020-10-23 BSA : 2.68? Requesting Name : ECHO STANDARD W/O CONTRAST Date of : 1975 Request Doctor : SOY ALVAREZ Department : CARD --< Approved Report > Study performed: 10/23/2020 08:54:15 EXAM: Comprehensive 2D, Doppler, and color-flow Echocardiogram Patient Location: ICU Room #: 237 BSA: 2.68 HR: 115 bpm BP: 98/65 mmHg Rhythm: Atrial Fibrillation Other Information Study Quality: Fair/not all measurements taken Technically limited study due to morbid obesity/flat on back/on BiPAP. Indications Afib. (Heart rate ranged from 110-135 bpm during exam) Echo Enhancing Agent Indication: Endocardial border delineation Agent(s) / Amount(s) Used: Optison 5 cc 2D Dimensions RVDd: 36.62 mm IVSd: 12.47 (7~11mm) LVOT Diam: 21.16 (18~24mm) LVDd: 50.45 mm [facility] [address] [place] [address] 2 D/M-MODE ECHOCARDIOGRAM Name: JULIENNE SUAREZ Room #: 249-P [facility] IN ..#: [id number] Admission: 10/21/20 Attend Phys: Soy Tompkins Oct Discharge: Date of : 77 Report #: [id number] PWd: 12.28 (7~11mm) Ascending Ao: 35.00 (22~36mm) LVDs: 44.07 (25~40mm) Aortic Root: 35.26 mm Volumes Left Atrial Volume (Systole) Single Plane 4CH: 30.47 mL Aortic Valve AoV Peak Jae.: 1.80 m/s AO Peak Gr.: 13.08 mmHg LVOT Max P.84 mmHg AO Mean Gr.: 7.56 mmHg AO V2 Mean: 1.31 m/s LVOT Max V: 0.84 m/s AO V2 VTI: 28.38 cm ANIKET Vmax: 1.65 cm2 Mitral Valve MV Decel. Time: 87.21 ms MV E Max Jae.: 0.89 m/s Pulmonary Valve PV Peak Jae.: 1.06 m/s PV Peak Gr.: 4.47 mmHg Tricuspid Valve RAP Estimate: 10.00 mmHg Left Ventricle The left ventricle is normal size. Mild concentric left ventricular hypertrophy. 40% This study is not technically sufficient to allow evaluation of the LV diastolic function due to atrial fibrillation. Right Ventricle Right ventricle is poorly visualized. Atria The left atrium size is normal. The right atrium size is normal. Aortic Valve Aortic valve is grossly normal. Trace aortic regurgitation. Mitral Valve The mitral valve is normal in structure. Trace mitral regurgitation. Tricuspid Valve The tricuspid valve is normal in structure. Unable to assess PA pressure. There is no tricuspid valve regurgitation noted. [facility] [address] [place] [address] 2 D/M-MODE ECHOCARDIOGRAM Name: JULIENNE SUAREZ Room #: 249-P [facility] IN M.R.#: [id number] Admission: 10/21/20 Attend Phys: Soy Mckinley Discharge: Date of : 77 Report #: [id number] Great Vessels The aortic root is normal in size. The ascending aorta is normal in size. IVC is dilated and collapses >50% with inspiration. Pericardium There is no pericardial effusion. Right pleural effusion. <Conclusion> Normal left ventricle size with mild concentric hypertrophy Ejection fraction 40% with global hypokinesis Right ventricle not well seen Normal atrial size Color-flow Doppler study was performed of the aortic/mitral/tricuspid/pulmonary valve Normal aortic/mitral valve structure and function No tricuspid valve insufficiency detected No pericardial effusion Electronically Approved : 10/28/2020 14:23:23 By: [id number] Alfonso Boothe MD, FACC /
--- NOTE | 2020-10-28 14:31 | NUR ---
ASSUMED CARE AT 11OO. PT INTUBATED AND SEDATED. FSC DURING SEDATION VACATION. CPAP TRIAL TODAY FROM [id number]. PT'S NUMBERS LOOKED GOOD BUT PT HAD INCREASED WORK OF BREATHING WITH ACCESSORY MUSCLES. HEPARIN GTT INIATED PER [facility] PROTOCAL. POTASSIUM REPLACED PER [facility] PROTOCAL. ART LINE DC'D. PT AFEBRILE, ADEQUATE UOP, FMS IN PLACE WITH MODERATE OUTPUT, NGT IN PLACE WITH TF RUNNING AT GOAL, RESIDUALS WNL. [address] WITH SEROSANG DRAINAGE, TUBE PATENT, NO TIDALING/AIR LEAK NOTED. INSULIN GTT IN PLACE AND BEING TITRATED PER [facility] PROTOCAL. PT UPDATED AND EDUCATED ON PT CONDITION AND POC. PT SLOWLY PROGRESSING TOWARDS POC.
[2020-10-29] VITALS (22 sets, daily range): BP systolic 112–164; BP diastolic 41–89
--- NOTE | 2020-10-29 04:26 | NUR ---
ASSUMED PT CARE AT 1900. VSS SEDATION VACATION FOR 20 MINUTES, PT FOLLOWS COMMANDS, ATTEMPTS TO MOUTH WORDS TO COMMNUNICATE NEEDS. PT HAD AN UNEVENTFUL NOC. PT IS STABLE. REAMAINS ON INSULIN GTT, DOWN TO 4.5U/HR. BG IN 150S. CHEST TUBES INTACT; NO AIR LEAKS, OR CREPITUS ON SKIN. WILL CONTINUE TO CLOSELY MONITOR PT.
[2020-10-29 06:40] LABS: HEMATOCRIT 22.1 % (42.0-52.0); HEMOGLOBIN 7.2 gm/dL (14.0-18.0); MCH 29.3 pg (26.0-34.0); MCHC 32.6 g/dL (28.0-37.0); MCV 89.8 fL (80.0-100.0); RBC 2.46 mil/uL (4.50-6.00); RDW 16.8 % (10.5-14.5); WBC 21.4 thou/uL (4.0-11.0)
[2020-10-29 06:46] LABS: CALCIUM 7.4 mg/dL (8.5-10.1); CREATININE 2.4 mg/dL (0.7-1.3); POTASSIUM 3.6 mmol/L (3.5-5.1)
[2020-10-29 09:29] LABS: BE(vivo) -5.7 mmol/L (-2 to +3); HCO3 19.7 mmol/L (22.0-26.0); PCO2 38.2 mmHg (35.0-45.0); PO2 89.3 mmHg (80.0-100.0); pH 7.331 (7.360-7.450); sO2 96.3 % (92.0-98.0)
--- NOTE | 2020-10-29 10:59 | NUR ---
ASSUMED CARE OF PT AT [address] ZHENG WOULD LIKE TO EXTUBATE THE PATIENT SINCE HE PASSED HIS CPAP AND IS RESPONDING TO COMMANDS. EXTUBATION PLANNED IN ROUGHLY AN HOUR TO ALLOW STOMACH TO EMPTY.
--- NOTE | 2020-10-29 12:21 | NUR ---
Case discussed in ICU rounds. Pt had good blood gases and cpap trial this morning. Plans to extubate later today. Was trying to write on communication board and following commands. DC technical planner to fax updated to the [facility] liason.
--- NOTE | 2020-10-29 12:47 | NUR ---
WOUND CARE F/U; THE LEFT HEEL HAS SCANT AMOUNT OF SEROSANGINOUS DRAINAGE, NO DRANAGE TO THE RIGHT. BOTH HEELS ARE HEALING USING TOPICAL WOUND CARE AND PRAFO BOOTS BILATERALLY FOR PRESSURE REDUCTION. THE COCCYX WAS NOT VISUALIZED. PICTURES TAKEN THE THE BILATERAL HEELS. NO CHANGES NEEDED AT THIS TIME. DISCUSSED WITH [facility].
[2020-10-30] VITALS (16 sets, daily range): BP systolic 122–156; BP diastolic 44–104
--- NOTE | 2020-10-30 03:01 | NUR ---
ASSESSMENT: PT REMAIN ALERT AND ORIENT TIMES TWO. FORGETFUL AND CONFUSED AT TIMES ABOUT SITUATION AND PLACE. VSS, AFEBRILE. SR PER MONITOR. TOLERATING 2 L NC. HEPARIN TITRATED PER PROTOCOL. INSULIN RESUMED AT 2200, BS 150. PARTIAL BATH GIVEN. REPOSITIONED WITH PILLOW TILTS Q 2 HRS. CHAWLA AND FMS PATENT WITH GOOD RESULTS. CT PATENT AND INTACT. SR PER MONITOR. WOUND DRESSING INTACT. SLOW PROGRESS TOWARDS DC GOALS., WILL CONTINUE TO MONITOR.
[2020-10-30 05:14] LABS: HEMOGLOBIN 6.9 gm/dL (14.0-18.0); MCH 29.3 pg (26.0-34.0)
[2020-10-30 05:17] LABS: HEMATOCRIT 21.3 % (42.0-52.0); MCHC 32.4 g/dL (28.0-37.0); MCV 90.3 fL (80.0-100.0); RBC 2.36 mil/uL (4.50-6.00); RDW 16.4 % (10.5-14.5); WBC 19.5 thou/uL (4.0-11.0)
[2020-10-30 05:31] LABS: CALCIUM 7.9 mg/dL (8.5-10.1); POTASSIUM 3.6 mmol/L (3.5-5.1)
--- NOTE | 2020-10-30 06:39 | NUR ---
PT STATING THAT HIS RIGHT SIDE "HURT" AT THIS TIME. REFUSING PAIN MEDICATION. PT HAD JUST HAD AN XRAY AND SAYS THAT HIS SIDE WAS HURTING EARLIER, THAT "I JUST DEALT WITH IT". PT DENIED PAIN EACH TIME HE WAS ASKED. WILL CONTINUE TO MONITOR.
--- NOTE | 2020-10-30 09:24 | NUR ---
0924- Placed SCD's on patient after education provided about importance/VTE.
--- NOTE | 2020-10-30 11:59 | NUR ---
FAXED CLINICAL UPDATES AND NEGATIVE COVID RESULTS (10/21/20) TO [facility]. WILL CONFIRM WITH GLENN/LIAISON THAT THEY RECEIVED. [facility] P [phone]; [facility]S FAX [phone]
[2020-10-31 03:27] VITALS: BP 127/56
--- NOTE | 2020-10-31 03:51 | NUR ---
Assumed pt care care at 1900. Pt is alert and oriented no self. No sign of distress noted in pt. Pt is laying in bed. Requsted for some ice chips. rn told pt is is NPO. Vital signs stable. 1 unit of PRBC administered. Denies pain. Scheduled meds administered to pt. No acute events overnight. Continue to monitor pt. No further needs at this time.
[2020-10-31 07:27] VITALS: BP 148/72
[2020-10-31 08:03] LABS: HEMATOCRIT 21.4 % (42.0-52.0); HEMOGLOBIN 7.2 gm/dL (14.0-18.0); MCH 30.4 pg (26.0-34.0); MCHC 33.5 g/dL (28.0-37.0); MCV 90.6 fL (80.0-100.0); RBC 2.37 mil/uL (4.50-6.00); RDW 16.5 % (10.5-14.5); WBC 17.5 thou/uL (4.0-11.0)
[2020-10-31 08:08] LABS: CALCIUM 8.3 mg/dL (8.5-10.1); CREATININE 1.8 mg/dL (0.7-1.3); MAGNESIUM 1.6 mg/dL (1.8-2.4); POTASSIUM 3.5 mmol/L (3.5-5.1)
--- NOTE | 2020-10-31 09:55 | NUR ---
ASSUMED PT CARE AT 0700. PT RESTING. SPEECH SEEN PATIENT AND PT PASSED HIS SWALLOW EVAL AND WAS GIVEN THE DIET ORDERED. PT DENIES PAIN THIS MORNING. ASSESSMENT PERFORMED AND CHARTED. VSS. WILL CONTINUE TO MONITOR PT.
[2020-10-31 11:15] VITALS: BP 152/67
--- NOTE | 2020-10-31 13:34 | NUR ---
pt transferred to bariatric bed.pt tolerated move well. pt then sat up and ate a couple bites of lunch. pt tolerated lunch well. vss. will continue to monitor.
[2020-10-31 15:14] VITALS: BP 169/77
--- NOTE | 2020-10-31 16:11 | NUR ---
Pt now on CCU and being seen by therapy and rehab medicine. [facility]N is following along. Pt is from [facility] but has not snf benefits as he [place]. Will reassess early next week and see if acute rehab is an option.
[2020-10-31 19:27] VITALS: BP 186/94
[2020-10-31 19:33] VITALS: BP 167/68
[2020-11-01 03:58] VITALS: BP 143/58
--- NOTE | 2020-11-01 03:59 | NUR ---
Assumed pt care at 1900. Pt is alert and responsive. No sign of distress noted in pt. Denies any pain. Pt is laying in bed. Assessment completed and documented. Scheduled meds administered to pt. No acute events overnight. No further needs at this time continue to monitor.
[2020-11-01 05:44] LABS: RBC 2.2 mil/uL (4.50-6.00)
[2020-11-01 05:45] LABS: HEMOGLOBIN 6.6 gm/dL (14.0-18.0); MCH 30.1 pg (26.0-34.0); MCHC 33.4 g/dL (28.0-37.0); RDW 16.3 % (10.5-14.5); WBC 14.7 thou/uL (4.0-11.0)
[2020-11-01 05:48] LABS: HEMATOCRIT 19.8 % (42.0-52.0)
[2020-11-01 06:01] LABS: CALCIUM 8.5 mg/dL (8.5-10.1); CREATININE 1.6 mg/dL (0.7-1.3); MAGNESIUM 1.4 mg/dL (1.8-2.4)
[2020-11-01 06:03] LABS: POTASSIUM 2.9 mmol/L (3.5-5.1)
[2020-11-01 07:27] VITALS: BP 156/80
[2020-11-01 07:54] VITALS: BP 137/52; BP 142/92; BP 152/50
--- NOTE | 2020-11-01 08:18 | NUR ---
assumed pt care at 0700. pt resting at this time. 0800, assessment performed and charted. pts blood transfusion started. vss. will continue to monitor. pt denies pain at this time.
[2020-11-01 11:44] VITALS: BP 152/58
--- NOTE | 2020-11-01 12:03 | NUR ---
PTS BLOOD TRANSFUSION FINISHED. NOON ASSESSMENT COMPLETED, NO CHANGES. VSS. WILL CONTINUE TO MONITOR.
[2020-11-01 16:24] VITALS: BP 147/80
[2020-11-01 16:35] LABS: HEMATOCRIT 22.7 % (42.0-52.0); HEMOGLOBIN 7.8 gm/dL (14.0-18.0)
[2020-11-01 20:00] VITALS: BP 142/61; BP 153/61
--- NOTE | 2020-11-02 03:26 | NUR ---
PT IS ALERT AND ORIENTED X4. LUNGS ARE DIMINISHED. ABDOMEN IS ROUND. BOWEL SOUNDS ACTIVE. PT HAS A CHAWLA PRESENT AND FECAL MANAGEMENT SYSTEM IN PLACE AT THIS TIME.ON NECTAR THICKEN LIQUIDS WITH SPOON. REQUESTING DIFFERENT THINGS TO DRINK REFUSED TO GIVE HIM AND TOLD HIM WHAT HIS RESTRICTIONS WAS. 3 PLUS EDEMA NOTED BILATERAL IN LEGS. CALL LIGHT WITHIN REACH IF NEEDS ASSISTANCE FROM NURSING.
[2020-11-02 04:46] VITALS: BP 114/61
[2020-11-02 06:00] LABS: HEMATOCRIT 22.4 % (42.0-52.0); HEMOGLOBIN 7.4 gm/dL (14.0-18.0); MCH 29.8 pg (26.0-34.0); MCHC 33.2 g/dL (28.0-37.0); MCV 89.7 fL (80.0-100.0); RBC 2.49 mil/uL (4.50-6.00); WBC 15.3 thou/uL (4.0-11.0)
[2020-11-02 06:06] LABS: CALCIUM 8.6 mg/dL (8.5-10.1); CREATININE 1.5 mg/dL (0.7-1.3); MAGNESIUM 1.3 mg/dL (1.8-2.4)
[2020-11-02 07:06] VITALS: BP 143/55
--- NOTE | 2020-11-02 09:52 | NUR ---
ASSUMED PT CARE AT 0700. PT RESTING. ASSESSMENT PERFORMED, CHARTED. VSS. MEDICATION ADMINISTRATION. WILL CONTINUE TO MONITOR.
[2020-11-02 11:20] VITALS: BP 140/64
--- NOTE | 2020-11-02 14:07 | NUR ---
ATTEMPTED TO GIVE PATIENT PO PILLS, PT COULD NOT SWALLOW A WHOLE PILL IN YOGURT OR APPLESAUCE, WE THEN ATTEMPTED TO CRUSH THE PILLS. PT SPIT HIS PILLS OUT AND STATES HE IS NOT DOING THAT, IT TASTE NASTY. I EXPLAINED TO HIM THAT IT IS IMPORTANT TO ATTEMPT TO TAKE HIS PILLS BY MOUTH DUE MANAGER RESEARCH AND DEVELOPMENT IVS ARE NOT POSSIBLE FOR THE MEDS HE RECEIVES. PT STATES HE DOESNT CARE. WILL TRY TO TALK TO PATIENT ABOUT OTHER OPTIONS TO GIVE WITH MEDS WITH NEXT DOSING.
[2020-11-02 16:37] VITALS: BP 149/78
[2020-11-02 19:38] VITALS: BP 158/83
[2020-11-03 03:41] VITALS: BP 147/76
--- NOTE | 2020-11-03 07:01 | NUR ---
ASSUME CARE 1900. POT/VITALS STABLE. A/O X 4. DENIES ANY PAIN. VERY POOR TOLERANCE TO ACTIVITY. PT NEEDS A LOT OF ENCOURAGEMENT TO MOVE SELF IN BED. PT/OT ON BOARD. ASSESSMENT CHARTED. POOR PROGRESS WITH POC. SR ON MONITOR. FECAL MGT TUBE SYSTEM IN PLACE. COPIOUS AMOUNT OF URINE NOTED WITH CHAWLA IN PLACE. URINE IS CLOUDY WITH LOTS OF SEDIMENTS. DENIES TAKING HIS PILLS DESPITE EDUCATION ON THE IMPORTANCE OF COMPLIANCE. PLAN IS TO MONITOR AND MANAGE RESP FUNCTION/ IMPROVE ACTIVITY LEVELS/MONITOR FOR INFECTION/MONITOR LOC AND KIDNEY FUNCTION. WILL CONTINUE TO MONITOR AND FOLLOW WITH POC
[2020-11-03 07:02] LABS: HEMATOCRIT 21.4 % (42.0-52.0); HEMOGLOBIN 7.3 gm/dL (14.0-18.0); MCH 30.6 pg (26.0-34.0); MCHC 34.1 g/dL (28.0-37.0); MCV 89.8 fL (80.0-100.0); RBC 2.38 mil/uL (4.50-6.00); RDW 16.2 % (10.5-14.5); WBC 12.6 thou/uL (4.0-11.0)
[2020-11-03 07:08] LABS: CALCIUM 8.5 mg/dL (8.5-10.1); CREATININE 1.3 mg/dL (0.7-1.3); MAGNESIUM 1.5 mg/dL (1.8-2.4)
[2020-11-03 07:10] LABS: POTASSIUM 2.7 mmol/L (3.5-5.1)
[2020-11-03 08:50] VITALS: BP 164/78
[2020-11-03 12:13] VITALS: BP 189/111
[2020-11-03 15:28] VITALS: BP 215/102
--- NOTE | 2020-11-03 19:52 | NUR ---
TWITCHES. REFUSING PO MEDS. K+, Mg REPLACED ORDERED. US ABD THIS P.M. FECAL MANAGEMENT TUBE AND CHAWLA PATENT.
[2020-11-03 20:28] VITALS: BP 170/50
--- NOTE | 2020-11-03 20:39 | NUR ---
PATIENT WEIGHS 383.9 LBS, 174 KG.
[2020-11-04] VITALS: BP 154/58
[2020-11-04 02:22] LABS: HEMATOCRIT 23.3 % (42.0-52.0); HEMOGLOBIN 7.7 gm/dL (14.0-18.0); MCH 29.7 pg (26.0-34.0); MCHC 32.8 g/dL (28.0-37.0); MCV 90.4 fL (80.0-100.0); RBC 2.58 mil/uL (4.50-6.00); RDW 16.4 % (10.5-14.5)
[2020-11-04 02:31] LABS: CALCIUM 8.3 mg/dL (8.5-10.1); CREATININE 1.4 mg/dL (0.7-1.3); MAGNESIUM 1.5 mg/dL (1.8-2.4)
[2020-11-04 02:32] LABS: POTASSIUM 2.9 mmol/L (3.5-5.1)
[2020-11-04 04:40] VITALS: BP 161/105
--- NOTE | 2020-11-04 04:57 | NUR ---
ASSUME CARE 1900. PT STABLE. BP RUNS HIGH MOSTLY. METOPROLOL 5MG IVP FOR BP/HEART RATE. A/O TO PERSON AND PLACE BUT NOT QUITE SITUATION AND TIME. PT DOES NOT SEEM FULLY APPROPRIATE NEUROLOGICALLY. DOES NOT QUITE FOLLOW COMMANDS AND SOMETIMES DOES NOT ANSWER QUESTIONS APPROPRIATELY. JERKING NOTED FREQUENTLY. CONTINUES TO DENY PO MEDICATION FOR THE MOST PART. PT NEEDS A LOT OF EDUCATION OF HEALTH PROMOTION AND SELF CARE. DOES NOT SEEM TO HAVE THE DESIRE TO LEARN OR MAKE THE EFFORT TOWARDS HEALTH PROMOTION. COULD REALLY BENEFIT FROM PT/OT. PLAN IS TO CONTINUE TO MONITOR LOC WELL CONTINUE ABX THERAPY. MONITOR AND REPLACE ELECTROLYTES. COPIOUS AMOUNTS OF URINE OUTPUT NOTED. SR ON MONITOR. FECAL MANAGEMENT TUBE STILL IN PLACE WITH LIQUID STOOL. WILL CONTINUE TO MONITOR AND FOLLOW WITH POC NOTED
--- NOTE | 2020-11-04 09:10 | NUR ---
[facility] denied patient for acute rehab. Plan return to [facility] at discharge.
--- NOTE | 2020-11-04 11:08 | NUR ---
FAXED CLINICAL UPDATE TO [facility] RECEIVED CONFIRMATION AND LEFT MSG WITH SANGEETA IN ADM.
--- NOTE | 2020-11-04 15:26 | NUR ---
WOUND CARE F/U; THE BILATERAL HEEL WOUNDS ARE STABLE AT THIS TIME AND CONTINUES TO DRAIN A SMALL AMOUNT OF SEROSANGINOUS DRAINAGE. NO ODOR OR OTHER S/S OF INFECTION. THE COCCYX MEANSURES 5 X 5 X 0.1 A MODERATE AMOUT OF SEROSANGINOUS DRAINAGE. THE PATIENT IS OBESE AND REFUSES TO TURN AND IS ANGRY. IT TAKES 3+ STAFF TO TURN. RECOMMENDATIONS; CONTINUE CURRENT DRESSING ORDERS. RN PRESENT.
--- NOTE | 2020-11-04 17:10 | NUR ---
Patient more alert. Discussed planned return to [facility]. Patient reports he has an apt and will dc to his apt. Discussed limitations and cannot return to apt at this time. left message for sister Elsie. Update facility.
--- NOTE | 2020-11-04 18:13 | NUR ---
SR PER TELE. MOSTLY SOMNOLENT, EXCEPT WHEN WE TURNED HIM TO CLEAN AND REDRESS HIS BUTTOCK WOUNDS, YELLING AT US. ELECTROLYTES REPLACED ORDERED. UPDATED HIS SISTER/DPOA TELEPHONICALLY. FALL PRECAUTIONS IN PLACE.
--- NOTE | 2020-11-04 19:09 | EEG ---
[facility] [place] [address] ELECTROENCEPHALOGRAM Name: JULIENNE SUAREZ Room #: 203-P ADM IN M.R.#: [id number] Admission: 10/21/20 Attend Phys: Soy Frazier Discharge: Date of : 77 Report #: [id number] THIS REPORT FOR: //name// DATE OF SERVICE: 11/03/2020 This patient is being evaluated for the altered mental status. EEG was done by placing the electrode by standard 10-20 system of electrode placement. Both referential and sequential montages were used for recording. Background activity in this patient's EEG is difficult to determine, as the patient did not cooperate and there is a lot of artifact. It does appear to be about 11 Hz and 40 microvolt. Photic stimulation is unremarkable. Throughout the record, no active epileptiform activity was noticed. IMPRESSION: This patient's EEG is intermixed with a lot of artifact. That is a nonspecific abnormality, which can occur with encephalopathy, effect of psychotropic medication, dementia, etc. Clinical correlation is recommended. <ELECTRONICALLY SIGNED> By: Volodymyr Guerra MD 11/04/20 1909 [id number] Volodymyr Guerra MD /nt
[2020-11-04 20:05] VITALS: BP 197/94
[2020-11-04 23:38] VITALS: BP 173/78
[2020-11-05 03:37] VITALS: BP 200/99
[2020-11-05 06:08] VITALS: BP 132/101
[2020-11-05 06:08] LABS: ABSOLUTE NEUTROPHILS 10.7 thou/uL (1.4-8.2); BASOPHILS 0.6 % (0.0-2.0); EOSINOPHILS 1.5 % (0.0-3.0); HEMATOCRIT 21.9 % (42.0-52.0); HEMOGLOBIN 7.4 gm/dL (14.0-18.0); LYMPHOCYTES 8.7 % (24.0-44.0); MCH 30.3 pg (26.0-34.0); MCHC 33.5 g/dL (28.0-37.0); MCV 90.4 fL (80.0-100.0); MONOCYTES 2.4 % (1.0-8.0); PLATELET COUNT 273 thou/uL (150-400); POLYS 86.8 % (36.0-66.0); RBC 2.43 mil/uL (4.50-6.00); RDW 16.6 % (10.5-14.5); WBC 12.3 thou/uL (4.0-11.0)
[2020-11-05 06:45] LABS: ALBUMIN 1.8 g/dL (3.4-5.0); CALCIUM 7.9 mg/dL (8.5-10.1); CREATININE 1.2 mg/dL (0.7-1.3); POTASSIUM 3.4 mmol/L (3.5-5.1); TOTAL BILIRUBIN 0.9 mg/dL (0.2-1.0); TOTAL PROTEIN 6.2 g/dL (6.4-8.2)
--- NOTE | 2020-11-05 07:46 | NUR ---
PT ALERT, SLEPT MOST OF THE NIGHT, SR ON THE MONITOR, BP ELEVATED, IV LOPRESSOR GIVEN X2, BP BETTER THIS AM, MEDS GIVEN PER OCT, PASSED ON REPORT TO DAY NURSE
[2020-11-05 08:12] VITALS: BP 143/90
[2020-11-05 11:50] VITALS: BP 149/91
--- NOTE | 2020-11-05 13:00 | NUR ---
ASSUMMED CARE OF THIS PATIENT THIS AM. PATIENT IS REFUSING MEALS AND IS UNABLE TO PARTICIPATE IN HIS CARE. JERKING MOVEMENT OF LEFT SIDE NOTED AND UNABLE TO LIFT HIS ARM OR MOVE HIS LEG.
[2020-11-05 15:31] VITALS: BP 173/67
[2020-11-05 19:28] VITALS: BP 138/55
--- NOTE | 2020-11-05 19:48 | NUR ---
PATIENT IS NOT PROGRESSING TOWARDS OUTCOME GOALS HE IS REFUSING TO EAT AND FRAGMENTS OF PILLS NOTED IN MOUTH 30 M[address]. [address] CLIFTON AWARE AND UP TO SEE PATIENT. POTASSIUM AND MAG GIVEN FOR LOWER LEVELS REPORTED TO DR CLIFTON. MONITOR SHOWING ST WITH RATE IN THE 120'S, METOPOROL GIVEN, WITH DECREASE IN HEART RATE NOTED. WILL CONTINUE TO MONITOR
--- NOTE | 2020-11-06 00:50 | NUR ---
ATTEMPTED TO TAKE PHOTOS OF PT BL HEELS AND COCCYX. CAMERA MALFUNCTION. PT REFUSED TO ALLOW RN TO RETAKE PHOTOS.
[2020-11-06 03:41] VITALS: BP 137/58
--- NOTE | 2020-11-06 04:41 | NUR ---
PT IS IRRITABLE AND OCCASIONALLY EXPRESSES HIMSELF WITH VERBAL OUTBURSTS AND CURSING AT STAFF. DOES NOT WISH TO BE TURNED VERY MUCH, BECOMES VERY UPSET WITH CARES REGARDING WOUNDS.
[2020-11-06 07:51] VITALS: BP 122/57
--- NOTE | 2020-11-06 11:24 | NUR ---
VASCULAR ACCESS NURSE ROUNDING FOR WEEKLY DRESSING CHANGE. THE INSERTION SITE IS NOTED TO BE SLIGHTLY PINK AND TENDER WITH CHLORHEXIDINE SCRUB. WEEKLY DRESSING CHANGE COMPLETED AND LEFT PERIPHERAL IV WAS REMOVED.
[2020-11-06 11:41] VITALS: BP 115/66
--- NOTE | 2020-11-06 12:44 | NUR ---
WOUND CARE F/U; THIS IS AN OBESE MALE WHO CONSISTANTLY REFUSES CARE. WE COLLABERATED WITH HIM AND HE AGREED. THE SACRUM/COCCYX WAS ASSESSED. THE WOUND BED IS PINK. SEROSANGIOUS DRAINAGE. NO ACUTE S/S OF INFECTION. THE HEEL WOUNDS BILATERALLY ARE STABLE. THE HEELS ARE DRAINGING A SCANT AMOUT OF SEROSANGINOUS DRAINAGE. RECOMMEDNATIONS REMAIN UNCHANGED. RN WAS PRESENT.
[2020-11-06 15:31] VITALS: BP 139/96
--- NOTE | 2020-11-06 17:13 | NUR ---
Case discussed with the care team and update given to the [facility] liason. Poor po intake noted, on bipap at night, and getting numerous iv meds including iv atb. Will discuss LTAC criteria with the team to determine if referrals are indicating vs direct return back to long term care administrator care at [facility]. [facility] will need a copy of his DPOA document that was completed on 10-24-20 as well as an updated covid test. Will follow.
[2020-11-06 18:49] LABS: MCH 29.8 pg (26.0-34.0); MCV 90.4 fL (80.0-100.0); RBC 2.13 mil/uL (4.50-6.00); RDW 17.2 % (10.5-14.5); WBC 10.1 thou/uL (4.0-11.0)
[2020-11-06 18:58] LABS: CALCIUM 7.6 mg/dL (8.5-10.1); CREATININE 1.2 mg/dL (0.7-1.3); MAGNESIUM 1.2 mg/dL (1.8-2.4); POTASSIUM 3.7 mmol/L (3.5-5.1)
[2020-11-06 19:02] LABS: HEMATOCRIT 19.2 % (42.0-52.0); HEMOGLOBIN 6.3 gm/dL (14.0-18.0)
[2020-11-06 20:16] VITALS: BP 154/69
[2020-11-06 21:55] VITALS: BP 129/70; BP 139/59
[2020-11-07] VITALS (8 sets, daily range): BP systolic 112–142; BP diastolic 28–84
[2020-11-07 02:07] LABS: HEMOGLOBIN 7.3 gm/dL (14.0-18.0)
--- NOTE | 2020-11-07 11:10 | NUR ---
Pt has had poor intake past 8 days at least despite encouragement from ST, team members. Recommend start enteral nutrition either dobhoff or ? need for surgical placement of feeding tube (hx gastric surgery). Recommend osmolite 1.5 formula to start 30ml/hr and progress to goal 60ml/hr. Recommend start MVI and vitamin D supplementation due to high risk nutrition deficiencies.
--- NOTE | 2020-11-07 14:35 | NUR ---
[facility] referral initiated this am and they can accept clinically. They have submitted for [place] medicaid auth and may have a bed later today or tomorrow. Care team updated. Pt got a unit of blood this and is having a dobhoff placed for nutritional support. Sister/dpoa updated on current status, dc options and level of care needs. She is agreeable to [facility] if authorized. She is in [place] and will try to come up for a few days in the near future. She was hoping if he could get stronger they could get him to a facility closer to them as he does not have family in the area. He still has his apartment and she will check on it as well. She is not sure how it is being paid for as his SSI check has been going to the correction. Elsie aware of the overall decline in the pt's mental status as she has been trying to talk with him over the phone several times weekly. She will touch base with the socialworker at [facility] as well. Copy of his dpoa document faxed to [facility] and [facility]. Awaiting call back from [facility] regarding ins auth and bed confirmation. Chart copy in progress.
--- NOTE | 2020-11-07 19:22 | NUR ---
PT CARE ASSUMED AT 0700. ASSESSMENTS CHARTED. MEDICATIONS CHARTED. RIJ 3L PICC. SINUS TACHYCARDIA. CHAWLA. FMS. RA DAYS, CPAP AT [facility]. DR COOMBS REQUESTED DOBHOFF PLACEMENT; CONTACTED KENO DEALER; PT REFUSED PLACEMENT; NOTIFIED. PT TO [facility] 11/08/20 AT 1400.
[2020-11-08 04:45] VITALS: BP 135/50; BP 143/80
[2020-11-08 06:19] LABS: BASOPHILS 0.8 % (0.0-2.0); HEMOGLOBIN 6.7 gm/dL (14.0-18.0)
[2020-11-08 06:20] LABS: ABSOLUTE NEUTROPHILS 4.3 thou/uL (1.4-8.2); EOSINOPHILS 6.3 % (0.0-3.0); HEMATOCRIT 20.1 % (42.0-52.0); LYMPHOCYTES 15.4 % (24.0-44.0); MCH 29.9 pg (26.0-34.0); MCHC 33.3 g/dL (28.0-37.0); MCV 89.8 fL (80.0-100.0); MONOCYTES 5.5 % (1.0-8.0); PLATELET COUNT 141 thou/uL (150-400); RBC 2.24 mil/uL (4.50-6.00)
[2020-11-08 06:35] LABS: ALBUMIN 1.6 g/dL (3.4-5.0); CALCIUM 7.7 mg/dL (8.5-10.1); CREATININE 1.2 mg/dL (0.7-1.3); POTASSIUM 4.3 mmol/L (3.5-5.1); TOTAL BILIRUBIN 0.9 mg/dL (0.2-1.0); TOTAL PROTEIN 6.1 g/dL (6.4-8.2)
[2020-11-08 07:20] VITALS: BP 142/72
[2020-11-08 11:10] VITALS: BP 153/15
[2020-11-08 14:35] VITALS: BP 156/91
--- NOTE | 2020-11-08 18:41 | NUR ---
ASSUMED CARE OF PT AT SHIFT CHANGE. ASSESSMENTS CHARTED. MEDS GIVE PER OCT. PT ALERT TO SELF, CONFUSED TO LOCATION AND TIME. NO C/O PAIN OR DISTRESS. 1 UNIT PRBC GIVEN WITH NO REACTION. PLAN FOR EGD ON TUESDAY. WILL CONTINUE TO MONITOR FOR CHANGES AND FOLLOW POC.
[2020-11-08 20:15] VITALS: BP 157/59
[2020-11-08 22:29] LABS: HEMATOCRIT 21.7 % (42.0-52.0); HEMOGLOBIN 7.6 gm/dL (14.0-18.0)
[2020-11-09 03:03] LABS: HEMATOCRIT 21.2 % (42.0-52.0); HEMOGLOBIN 7.1 gm/dL (14.0-18.0); MCH 29.9 pg (26.0-34.0); MCHC 33.4 g/dL (28.0-37.0); MCV 89.3 fL (80.0-100.0); RBC 2.37 mil/uL (4.50-6.00); RDW 15.8 % (10.5-14.5); WBC 4.6 thou/uL (4.0-11.0)
[2020-11-09 03:23] LABS: ALBUMIN 1.6 g/dL (3.4-5.0); CALCIUM 7.7 mg/dL (8.5-10.1); CREATININE 1.1 mg/dL (0.7-1.3); POTASSIUM 4.3 mmol/L (3.5-5.1); TOTAL BILIRUBIN 0.9 mg/dL (0.2-1.0); TOTAL PROTEIN 5.9 g/dL (6.4-8.2)
[2020-11-09 04:45] VITALS: BP 144/41
[2020-11-09 07:15] VITALS: BP 96/57
--- NOTE | 2020-11-09 07:33 | NUR ---
ASSESSMENTS CHARTED. MEDS GIVEN CHARTED. RESTING IN BED, ROTATED THROUGHOUT NIGHT. MAINTENANCE FLUIDS STILL RUNNING DURING SHIFT. FECAL MANAGEMENT SYSTEM AND CHAWLA IN PLACE. ACHS ON . PILLS TAKEN WHOLE PATIENT IS SCHEDULED FOR AND EGD ON TUESDAY. FALL PRECAUTIONS IN PLACE DURING SHIFT.
[2020-11-09 11:00] VITALS: BP 111/64
[2020-11-09 15:30] VITALS: BP 105/91
--- NOTE | 2020-11-09 16:19 | NUR ---
ASSUMED CARE OF PT AT SHIFT CHANGE. ASSESSMENTS CHARTED. MEDS GIVEN PER OCT. PT ALERT TO SELF AND SOMETIMES PLACE. NO C/O PAIN OR DISTRESS DURING SHIFT. PT SHIFTED SIDE TO SIDE BY BARIATRIC BED. HGB STABLE TODAY. PLAN FOR EGD TOMORROW. WILL CONTINUE TO MONITOR FOR CHANGES AND FOLLOW POC.
[2020-11-09 20:00] VITALS: BP 147/79
[2020-11-10] VITALS (11 sets, daily range): BP systolic 118–180; BP diastolic 63–86
[2020-11-10 03:19] LABS: HEMATOCRIT 21.2 % (42.0-52.0); HEMOGLOBIN 7.2 gm/dL (14.0-18.0); MCH 30.2 pg (26.0-34.0); MCV 88.9 fL (80.0-100.0); RBC 2.39 mil/uL (4.50-6.00); RDW 15.3 % (10.5-14.5); WBC 4.3 thou/uL (4.0-11.0)
[2020-11-10 03:28] LABS: ALBUMIN 1.7 g/dL (3.4-5.0); CALCIUM 7.8 mg/dL (8.5-10.1); CREATININE 1.2 mg/dL (0.7-1.3); POTASSIUM 4.2 mmol/L (3.5-5.1); TOTAL BILIRUBIN 0.8 mg/dL (0.2-1.0); TOTAL PROTEIN 6.1 g/dL (6.4-8.2)
--- NOTE | 2020-11-10 04:19 | NUR ---
ASSESSMENTS CHARTED, MEDS CHARTED GIVEN. PATIENT RESTING IN BED DURING SHIFT. PATIENT CONFUSSED AND HAVING VISUAL HALLUCINATIONS. SINUS TACH ON TELEMETRY. HAS BEEN NPO SINCE MIDNIGHT FOR EGD IN THE AM. PATIENT BEING TURNED SIDE TO SIDE DURING SHIFT. FALL PRECAUTIONS IN PLACE DURING SHIFT.
--- NOTE | 2020-11-10 13:26 | NUR ---
patient to have IVC filter with plan dc to [facility] once stable and bed avail at [facility]. Updated [facility].
--- NOTE | 2020-11-10 13:57 | NUR ---
FAXED CLINICAL UPDATE TO [facility] SPOKE WITH ROBERTA IN ADM SHE RECEIVED UPDATE. DP TO FOLLOW.
--- NOTE | 2020-11-10 19:34 | NUR ---
RECEIVED PT'S CARE AROUND 0710; PT. RESTING WITH EYES CLOSED; EQUAL CHEST RISING; O2 SAT ABOVE 90%; ST ON THE MONITOR; DURING AM ASSESSMENT PT. ALERT TO PERSON; C/O PAIN OVER ANKLE WHEN TOUCH; REFUSED WOUND CARE; NPO; DESIREE ALEX HEEL NAILING MACHINE OPERATOR MANTAINED PT. NPO UNTIL FURTHER UPDATED; VP DIGITAL [employer] ST. PATHAK; NO PO AM MEDICATIONS GIVEN; DESIREE ALEX HEEL NAILING MACHINE OPERATOR POSSIBLE NO EGD; MELIZA HEEL NAILING MACHINE OPERATOR NOTIFIED; MANTAINED PT. NPO FOR POSSIBLE IVC FILTER; DR. VALERIY DURAN; REQUESTED TO MANTAIN PT. NPO; PT. GONE FOR PROCEDURE LATER ON THE AFTERNOON; BACK FROM PROCEDURE CLOSE TO 1600; R. GROIN SIDE C/D/I; MONITORING; CLINAMAX STARTED; DR. COOMBS NOTIFIED ABOUT IT; ST. WILL DECREASE FLUIDS RATE; VP DIGITAL MARKETING UNDERSTANDING; THROUGH THE DAY NO NEW ORDERS; DESIREE ALEX HEEL NAILING MACHINE OPERATOR DECREASE FLUIDS TO HALF RATE; FLUIDS DECREASE TO 100 ML/H; RECEIVED CALL FROM PHARMACIST LIZZETH DE JESUS PER DR. COOMBS D/C FLUIDS; FLUIDS D/C; REMAINED ON EMAR; PASSED ON REPORT; ASSESSMENT CHARGED; FOLLOWING POC; PASSED ON REPORT;
[2020-11-11] VITALS: BP 143/77
[2020-11-11 04:30] VITALS: BP 179/84
[2020-11-11 06:11] LABS: HEMATOCRIT 22.2 % (42.0-52.0); HEMOGLOBIN 7.4 gm/dL (14.0-18.0); MCH 29.7 pg (26.0-34.0); MCHC 33.2 g/dL (28.0-37.0); MCV 89.2 fL (80.0-100.0); RBC 2.48 mil/uL (4.50-6.00); RDW 15.6 % (10.5-14.5); WBC 4.8 thou/uL (4.0-11.0)
[2020-11-11 06:38] LABS: ALBUMIN 1.8 g/dL (3.4-5.0); CALCIUM 7.6 mg/dL (8.5-10.1); CREATININE 1.2 mg/dL (0.7-1.3); MAGNESIUM 1.4 mg/dL (1.8-2.4); POTASSIUM 4.7 mmol/L (3.5-5.1); TOTAL BILIRUBIN 0.6 mg/dL (0.2-1.0); TOTAL PROTEIN 5.9 g/dL (6.4-8.2)
[2020-11-11 07:20] VITALS: BP 157/99
--- NOTE | 2020-11-11 10:13 | NUR ---
WOUND CARE DICHARGE NOTE; THE PATIENT HAS IMPROVED GREATLY SINCE ADMISSION. THE HEEL(S) ARE ALMOST HEALED. THE SACRUM AND THE ISCHIUM ARE IMPROVING WELL. NO S/S OF INFECTION. THE PATIENT'S MENTAL STATUS IS IMPROVED. ATHE PATIENT CANNOT TURN HIMSELF OR ASSIST, RECOMMENDATIONS; CONTINUE CURRENT ORDERS. DISCUSSED WITH RN.
[2020-11-11 11:30] VITALS: BP 123/58
--- NOTE | 2020-11-11 15:04 | NUR ---
FAXED CLINICAL UPDATE TO [facility] SPOKE WITH ROBERTA IN ADM SHE RECEIVED UPDATE.
--- NOTE | 2020-11-11 15:20 | NUR ---
FAXED CLINICAL UPDATE TO [facility] RECEIVED CONFIRMATION AND SPOKE WITH GLENN WRIGHT SHE RECEIVED UPDATE.
[2020-11-11 15:35] VITALS: BP 162/80
--- NOTE | 2020-11-11 16:49 | NUR ---
No bed avail at [place] today. Sp with sister. She plans to be in town next week. She wants to gather patients belongings. She questioned if wallet with patient. RN and casemgt checked room no wallet. Javier liason to call sister tomorrow to arrange to tow picker patients belongings.
[2020-11-11 20:15] VITALS: BP 147/45
[2020-11-12 04:00] VITALS: BP 129/74
[2020-11-12 07:35] VITALS: BP 135/58
[2020-11-12 07:41] LABS: HEMATOCRIT 21.1 % (42.0-52.0); HEMOGLOBIN 7.1 gm/dL (14.0-18.0); MCHC 33.9 g/dL (28.0-37.0); MCV 88.7 fL (80.0-100.0); RBC 2.38 mil/uL (4.50-6.00); RDW 15.3 % (10.5-14.5); WBC 4.5 thou/uL (4.0-11.0)
[2020-11-12 07:46] LABS: CALCIUM 8.2 mg/dL (8.5-10.1); CREATININE 1.4 mg/dL (0.7-1.3); POTASSIUM 4.4 mmol/L (3.5-5.1)
[2020-11-12 11:30] VITALS: BP 142/76
[2020-11-12] MEDS ORDERED: VANCO 1.251.25 GM/25 IVPB (14:36)
[2020-11-12 16:00] VITALS: BP 139/56
--- NOTE | 2020-11-12 16:25 | NUR ---
RECEIVED AUTH FOR PT TO GO TO [facility] FAXED DC ORDERS/SUMMARY TO FACILITY SPOKE WITH ROBERTA IN ADM SHE RECEIVED ORDERS AND TRANSPORT ARRANGED BY AMBULANCE FOR 1800 TODAY. UNIT NOTIFIED AND CHART COPY PER US. FAMILY NOTIFIED BY CHEMA SAENZ AND IN AGREEMENT WITH DC PLAN. RN TO CALL REPORT TO [phone].
--- NOTE | 2020-11-12 16:52 | NUR ---
GAVE REPORT TO TOMEKA HAINES. EMS TO ARRIVE AT 1800.
--- NOTE | 2020-11-12 17:32 | NUR ---
[facility] with bed avail. Orders faxed. [facility] for 1800 at request of [place]. Notified patient. Spoke with sister who is agreeable to dc and transfer
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
== END 2020-11-12 19:13 | DRG 853 ==
LOC: ER 21:06 → ICU 22:24 → EROBS 22:24 → 2N 22:24 → ICU 23:19 → 2N 10-30 15:15
PROVIDERS: Anesthesiology; Emergency Medicine; Hospitalist; Internal Medicine; Internal Medicine Pulmonary Disease; Nurse Practitioner Family; Pediatrics; Specialist; ADMIT Hospitalist; ATTEND Hospitalist
PROC: 5A0935A Assistance with Respiratory Ventilation, Less than 24 Consecutive Hours, High Flow/Velocity Cannula (ICD-10-PCS; 2020-10-22)
PROC: 30233N1 Transfusion of Nonautologous Red Blood Cells into Peripheral Vein, Percutaneous Approach (ICD-10-PCS; 2020-10-22)
PROC: 5A1945Z Respiratory Ventilation, 24-96 Consecutive Hours (ICD-10-PCS; 2020-10-22)
PROC: 0BNF0ZZ Release Right Lower Lung Lobe, Open Approach (ICD-10-PCS; principal; 2020-10-24)
PROC: 0BH17EZ Insertion of Endotracheal Airway into Trachea, Via Natural or Artificial Opening (ICD-10-PCS; principal; 2020-10-24)
PROC: 02HV33Z Insertion of Infusion Device into Superior Vena Cava, Percutaneous Approach (ICD-10-PCS; principal; 2020-10-24)
PROC: B548ZZA Ultrasonography of Superior Vena Cava, Guidance (ICD-10-PCS; principal; 2020-10-24)
PROC: 0BND0ZZ Release Right Middle Lung Lobe, Open Approach (ICD-10-PCS; principal; 2020-10-24)
PROC: 5A1955Z Respiratory Ventilation, Greater than 96 Consecutive Hours (ICD-10-PCS; principal; 2020-10-24)
PROC: 0BJ08ZZ Inspection of Tracheobronchial Tree, Via Natural or Artificial Opening Endoscopic (ICD-10-PCS; principal; 2020-10-24)
PROC: 0BNC0ZZ Release Right Upper Lung Lobe, Open Approach (ICD-10-PCS; principal; 2020-10-24)
PROC: 5A09557 Assistance with Respiratory Ventilation, Greater than 96 Consecutive Hours, Continuous Positive Airway Pressure (ICD-10-PCS; 2020-10-31)
PROC: 06H03DZ Insertion of Intraluminal Device into Inferior Vena Cava, Percutaneous Approach (ICD-10-PCS; 2020-11-10)
DX: A41.02 Sepsis due to Methicillin resistant Staphylococcus aureus (principal); J96.21 Acute and chronic respiratory failure with hypoxia; J18.9 Pneumonia, unspecified organism; R65.21 Severe sepsis with septic shock; J86.9 Pyothorax without fistula; E43 Unspecified severe protein-calorie malnutrition; G92 Toxic encephalopathy; Z68.43 Body mass index [BMI] 50.0-59.9, adult; N17.9 Acute kidney failure, unspecified; E46 Unspecified protein-calorie malnutrition; E66.2 Morbid (severe) obesity with alveolar hypoventilation; J90 Pleural effusion, not elsewhere classified; I82.431 Acute embolism and thrombosis of right popliteal vein; L97.422 Non-pressure chronic ulcer of left heel and midfoot with fat layer exposed; L97.419 Non-pressure chronic ulcer of right heel and midfoot with unspecified severity; D68.69 Other thrombophilia; I82.432 Acute embolism and thrombosis of left popliteal vein; I82.492 Acute embolism and thrombosis of other specified deep vein of left lower extremity; I42.9 Cardiomyopathy, unspecified; E78.5 Hyperlipidemia, unspecified; F32.9 Major depressive disorder, single episode, unspecified; D64.9 Anemia, unspecified; E74.39 Other disorders of intestinal carbohydrate absorption; G72.9 Myopathy, unspecified; I12.9 Hypertensive chronic kidney disease with stage 1 through stage 4 chronic kidney disease, or unspecified chronic kidney disease; E03.9 Hypothyroidism, unspecified; N18.9 Chronic kidney disease, unspecified; I95.9 Hypotension, unspecified; D69.6 Thrombocytopenia, unspecified; R13.10 Dysphagia, unspecified; E83.42 Hypomagnesemia; G40.909 Epilepsy, unspecified, not intractable, without status epilepticus; Z20.822 Contact with and (suspected) exposure to COVID-19; Z86.718 Personal history of other venous thrombosis and embolism; Z79.82 Long term (current) use of aspirin; Z79.01 Long term (current) use of anticoagulants; Z79.899 Other long term (current) drug therapy; Z98.84 Bariatric surgery status
CPT/HCPCS: 10078; 10081; 47405; 50010; 50101; 50386; 50417; 50455; 50498; 51301; 52189; 52265; 54118; 56524; 56525; 56526; 56527; 56528; 62110; 62900; 65020; 65040; 65090; 65105; 65129; 65131; 85076